=== PATIENT | female | born 1975 | race African-American/Black ===

== ENCOUNTER 2016-08-24 00:27 | Observation (INO) | payer OTHER ==
[~2016-08-24] VITALS: Ht 172.7 cm; Wt 70.0 kg
[2016-08-24] VITALS (7 sets, daily range): BP systolic 97–155; BP diastolic 61–95; PULSE 63–93; RESP 16–20; TEMP 97.8–98.4; O2SAT 96–99
[~2016-08-24 00:27] MED LIST: DIAZ5 PO; OXYC-360 PO; Z.0.NO CURRENT MEDS
--- NOTE | 2016-08-24 00:48 | PD ---
HPI Chief Complaint: epigastric and left-sided pain Time Seen by Provider: 00:48 Travel History International Travel<30 days: No Contact w/Intl Traveler<30days: No Traveled to known affect area: No History of Present Illness HPI 41-year-old female came to the emergency room with her for epigastric and left sided pain. Patient points to the left side of her lower chest area and the epigastrium as the location of the pain. However patient has significant scoliosis and the pain seems more like left flank. She also says that the pain radiates to the left side and goes to the back. It is spasmodic in nature. She has been nauseous and vomited 4 times since the pain has begun. Patient says that the pain started at 6 PM yesterday evening when she was coming home from work. An hour after that she started throwing up. Patient says that she passed a kidney stone about 15 years ago and at that time she had this kind of severe pain. She was doing fine yesterday before the symptoms started. She is otherwise a healthy person. She has an IUD and hence does not think she could be . She looks uncomfortable and in distress. No history of diarrhea. She did have 1 bowel movement which looked normal and did not relieve her pain. [facility] Past Medical History Narrative Medical List of her past medical history as reviewed from the nursing note. Musculoskeletal: Yes (scoliosis) Past Surgical History Neurologic Surgery: Yes (back) Social History Alcohol Use: No Tobacco Use: No Substance Use: No Allergies-Medications (Allergen,Severity, Reaction): Coded Allergies: No Known Allergies (Unverified , 02/02/12) Comments No known drug allergies. Reported Meds & Prescriptions Reported Meds & Active Scripts Active No Active Prescriptions or Reported Medications Narrative Medication List of her home medications reviewed from the nursing note. Review of Systems Except as stated in HPI: all other systems reviewed are Neg Physical Exam Narrative GENERAL: Awake, alert, moderate to significant distress SKIN: Warm and dry. HEAD: Atraumatic. Normocephalic. EYES: Pupils equal and round. No scleral icterus. No injection or drainage. ENT: No nasal bleeding or discharge. Mucous membranes pink and moist. NECK: Trachea midline. No JVD. CARDIOVASCULAR: Regular rate and rhythm. No murmur appreciated. RESPIRATORY: No accessory muscle use. Clear to auscultation. Breath sounds equal bilaterally. GASTROINTESTINAL: Abdomen soft, non-tender, nondistended. Hepatic and splenic margins not palpable. MUSCULOSKELETAL: No obvious deformities. No clubbing. No cyanosis. No edema. Significant scoliosis to the left. Scar from old back surgery for scoliosis. No point tenderness. NEUROLOGICAL: Awake and alert. No obvious cranial nerve deficits. Motor grossly within normal limits. Normal speech. PSYCHIATRIC: Appropriate mood and affect; insight and judgment normal. Data Data Last Documented VS Vital Signs Date Time Temp Pulse Resp B/P Pulse Ox O2 Delivery O2 Flow Rate FiO2 08/24/16 00:32 97.8 93 16 155/95 97 Room Air Orders Complete Blood Count With Diff (08/24/16 00:59) Basic Metabolic Panel (Bmp) (08/24/16 00:59) Beta Hcg (Quant/Titer) (08/24/16 00:59) Urinalysis - C+S If Indicated (08/24/16 00:59) Ct Abd/Pel W/O Iv Contrast (08/24/16 00:59) Ecg Monitoring (08/24/16 00:59) Iv Access Insert/Monitor (08/24/16 00:59) Morphine Inj (Morphine Inj) (08/24/16 01:00) Ondansetron Inj (Zofran Inj) (08/24/16 01:00) Sodium Chloride 0.9% Flush (Ns Flush) (08/24/16 01:00) Sodium Chlor 0.9% 1000 Ml Inj (Ns 1000 M (08/24/16 00:59) Troponin I (08/24/16 00:59) Chest, Single Ap (08/24/16 ) Electrocardiogram (08/24/16 ) Blood Culture (08/24/16 03:17) Lactic Acid (08/24/16 03:17) Piperacil-Tazo 3.375 Gm Premix (Zosyn 3. (08/24/16 03:30) Admit Order (Ed Use Only) (08/24/16 03:23) Us Abdomen Gallbladder (08/24/16 ) Lipase (08/24/16 01:02) Labs Laboratory Tests Test 08/24/16 08/24/16 01:02 01:50 White Blood Count 12.8 TH/MM3 Red Blood Count 4.41 MIL/MM3 Hemoglobin 13.2 GM/DL Hematocrit 38.2 % Mean Corpuscular Volume 86.7 FL Mean Corpuscular Hemoglobin 29.9 PG Mean Corpuscular Hemoglobin 34.5 % Concent Red Cell Distribution Width 14.1 % Platelet Count 330 TH/MM3 Mean Platelet Volume 8.2 FL Neutrophils (%) (Auto) 82.2 % Lymphocytes (%) (Auto) 9.7 % Monocytes (%) (Auto) 4.9 % Eosinophils (%) (Auto) 2.3 % Basophils (%) (Auto) 0.9 % Neutrophils # (Auto) 10.5 TH/MM3 Lymphocytes # (Auto) 1.2 TH/MM3 Monocytes # (Auto) 0.6 TH/MM3 Eosinophils # (Auto) 0.3 TH/MM3 Basophils # (Auto) 0.1 TH/MM3 CBC Comment AUTO DIFF Differential Total Cells 100 Counted Neutrophils % (Manual) 80 % Band Neutrophils % 4 % Lymphocytes % 10 % Monocytes % 5 % Eosinophils % 1 % Neutrophils # (Manual) 10.8 TH/MM3 Differential Comment FINAL DIFF MANUAL Platelet Estimate NORMAL Platelet Morphology Comment NORMAL Ovalocytes 1+ Red Cell Morphology Comment Sodium Level 139 MEQ/L Potassium Level 3.8 MEQ/L Chloride Level 107 MEQ/L Carbon Dioxide Level 25.1 MEQ/L Anion Gap 7 MEQ/L Blood Urea Nitrogen 7 MG/DL Creatinine 0.81 MG/DL Estimat Glomerular Filtration 94 ML/MIN Rate Random Glucose 109 MG/DL Calcium Level 8.7 MG/DL Total Bilirubin 0.3 MG/DL Direct Bilirubin LESS THAN 0.1 MG/DL Indirect Bilirubin 0.2 MG/DL Aspartate Amino Transf 24 U/L (AST/SGOT) Alanine Aminotransferase 37 U/L (ALT/SGPT) Alkaline Phosphatase 57 U/L Troponin I LESS THAN 0.02 NG/ML Total Protein 7.3 GM/DL Albumin 3.9 GM/DL Lipase 162 U/L Human Chorionic Gonadotropin, LESS THAN 1 Quant MIU/ML Urine Color LIGHT-YELLOW Urine Turbidity HAZY Urine pH 7.5 Urine Specific [place] 1.011 Urine Protein NEG mg/dL Urine Glucose (UA) NEG mg/dL Urine Ketones NEG mg/dL Urine Occult Blood NEG Urine Nitrite NEG Urine Bilirubin NEG Urine Urobilinogen LESS THAN 2.0 MG/DL Urine Leukocyte Esterase NEG Urine RBC 1 /hpf Urine WBC LESS THAN 1 /hpf Urine Squamous Epithelial 8 /hpf Cells Urine Bacteria RARE /hpf Urine Mucus FEW /lpf Microscopic Urinalysis Comment CULT NOT INDICATED MDM Medical Decision Making Medical Screen Exam Complete: Yes Emergency Medical Condition: Yes Medical Record Reviewed: Yes Interpretation(s) Twelve-lead EKG was reviewed by me. Normal sinus rhythm, normal axis, nonspecific ST-T wave changes. Heart rate of 68 bpm. Differential Diagnosis ACS, renal colic, musculoskeletal pain Narrative Course 1:33 AM awaiting for the blood test results and the CAT scan to be done and resulted. Patient has been medicated for pain and nausea. 3:18 AM CAT scan result is back and is suggestive of distended gallbladder with slightly thickened gallbladder wall and possible pericholecystic fluid. I have ordered IV Zosyn along with blood cultures and lactic acid. I went back and reassessed the patient. She says that the pain was little better and is now coming back again. She does not seem to be exquisitely tender in the right upper quadrant. However patient does have significant scoliosis which probably has caused abnormal anatomical positioning of the viscera. In any case I have decided to admit the patient at least for observation. I let her know about this plan. Patient is okay with that. Her white count was slightly elevated with left shift. Awaiting for the hospitalist to call back. I will order an ultrasound of her gallbladder as well. Procedures EKG Prior to Arrival: No Diagnosis Primary Impression: Abdominal pain Qualified Code: R10.9 - Abdominal pain, unspecified location Additional Impression: Acute cholecystitis Admitting Information Admitting Physician Requests: Admit Scripts No Active Prescriptions or Reported Meds Logan Barreto MD Aug 24, 2016 00:48
[2016-08-24] MEDS ORDERED: SODIUM CHLOR 0.9% 1000 ML INJ 1,000 ML IV ONE (00:59)
[2016-08-24] MEDS ORDERED: SODIUM CHLORIDE 0.9% FLUSH 5 ML FLUSH IVF PRN (01:00)
[2016-08-24] MEDS ORDERED: MORPHINE SULFATE 4 MG/ML INJ IV ONE (01:00)
[2016-08-24] MEDS ORDERED: ONDANSETRON HCL 4 MG/2 ML VIAL IVP ONE (01:00)
[2016-08-24 01:28] LABS: AUTOMATED NEUTROPHIL # 10.5 TH/MM3 (1.8-7.7); BASOPHIL # 0.1 TH/MM3 (0-0.2); BASOPHIL % 0.9 % (0.0-2.0); EOSINOPHIL # 0.3 TH/MM3 (0-0.4); EOSINOPHIL % 2.3 % (0.0-4.0); HEMATOCRIT 38.2 % (35.0-46.0); LYMPH % 9.7 % (9.0-44.0); LYMPHOCYTE # 1.2 TH/MM3 (1.0-4.8); MEAN CELL VOLUME 86.7 FL (80.0-100.0); MEAN CORPUSCULAR HEMOGLOBIN 29.9 PG (27.0-34.0); MEAN CORPUSCULAR HGB CONC 34.5 % (32.0-36.0); MONO % 4.9 % (0.0-8.0); NEUT % 82.2 % (16.0-70.0); PLATELET COUNT 330 TH/MM3 (150-450); RED BLOOD COUNT 4.41 MIL/MM3 (4.00-5.30); RED CELL DISTRIBUTION WIDTH 14.1 % (11.6-17.2); WHITE BLOOD COUNT 12.8 TH/MM3 (4.0-11.0)
[2016-08-24 01:33] LABS: HEMO FLAGS AUTO DIFF
[2016-08-24 01:54] LABS: ANION GAP 7 MEQ/L (5-15); BICARBONATE 25.1 MEQ/L (21.0-32.0); BLOOD UREA NITROGEN 7 MG/DL (7-18); CHLORIDE 107 MEQ/L (98-107); GLOMERULAR FILTRATION RATE 94 ML/MIN (>89); POTASSIUM 3.8 MEQ/L (3.5-5.1); SODIUM (NA) 139 MEQ/L (136-145)
[2016-08-24 01:57] LABS: BETA HCG QUANT LESS THAN 1 MIU/ML (0-5)
[2016-08-24 02:05] LABS: BANDS 4 % (0-6); EOSINOPHILS 1 % (0-4); NEUTROPHIL # MANUAL DIFF 10.8 TH/MM3 (1.8-7.7); PLATELET ESTIMATE SMEAR NORMAL (NORMAL); PLATELET MORPHOLOGY NORMAL (NORMAL); POLYS (SEG NEUTROPHILS) 80 % (16-70); SCAN/DIFF FINAL DIFF MANUAL; WBC DIFF SAMPLE 100
[2016-08-24 02:07] LABS: OVALOCYTES 1+ (NORMAL)
--- NOTE | 2016-08-24 02:29 | RADRPT ---
EXAM DATE/TIME: 08/24/2016 02:09 [facility] COMPARISON: No previous studies available for comparison. INDICATIONS : Left flank pain since yesterday evening. ORAL CONTRAST: No oral contrast ingested. RADIATION DOSE: 7.37 CTDIvol (mGy) MEDICAL HISTORY : Renal calculi. SURGICAL HISTORY : Tubal ligation. Fusion, lumbar.Fusion, thoracic. ENCOUNTER: Initial ACUITY: 1 day PAIN SCALE: 7/10 LOCATION: Left flank TECHNIQUE: Volumetric scanning of the abdomen and pelvis was performed. Using automated exposure control and ad justment of the mA and/or kV according to patient size, radiation dose was kept as low as reasonably achievable to obtain optimal diagnostic quality images. FINDINGS: LOWER LUNGS: The visualized lower lungs are clear. LIVER: Homogeneous density without lesion. There is no dilation of the biliary tree. Gallbladder is distend ed and by CT there appears to be gallbladder wall thickening and pericholecystic fluid. No definite s tone seen. There is no ductal dilatation demonstrated. SPLEEN: Normal size without lesion. PANCREAS: Within normal limits. KIDNEYS: Normal in size and shape. There is no mass, stone, or hydronephrosis. ADRENAL GLANDS: Within normal limits. VASCULAR: There is no aortic aneurysm. BOWEL/MESENTERY: The stomach, small bowel, and colon demonstrate no acute abnormality. There is no free intraperitone al air or fluid. Appendix is well-visualized, normal. ABDOMINAL WALL: Within normal limits. RETROPERITONEUM: There is no lymphadenopathy. BLADDER: No wall thickening or mass. REPRODUCTIVE: No mass or inflammatory change is seen. No pelvic free fluid. There is an IUD that appears appropriat argelia positioned centrally within the uterus. INGUINAL: There is no lymphadenopathy or hernia. MUSCULOSKELETAL: No acute bony abnormality demonstrated. Patient has scoliosis. There is been previous lower thoracic spine fusion procedure with posterior instrumentation. CONCLUSION: 1. No stone or obstructive uropathy seen of either kidney. 2. However, distended, thick walled gallbladder with pericholecystic fluid noted and of concern for c holecystitis in the proper clinical setting. No definite cholelithiasis. Kaden Hampton MD on August 24, 2016 at 2:21 Board Certified Radiologist. This report was verified electronically.
--- NOTE | 2016-08-24 02:40 | RADRPT ---
EXAM DATE/TIME: 08/24/2016 01:33 [facility] COMPARISON: No previous studies available for comparison. INDICATIONS : Shortness of breath. MEDICAL HISTORY : None. SURGICAL HISTORY : None. ENCOUNTER: Initial ACUITY: 1 day PAIN SCORE: 0/10 LOCATION: Bilateral chest FINDINGS: A single view of the chest demonstrates the lungs to be symmetrically aerated without evidence of mas s, infiltrate or effusion. The cardiomediastinal contours are unremarkable. There is dextroconvex curvature of the thoracic spine. Patient has had previous thoracic spine fusion procedure with posterior instrumentation. CONCLUSION: No evidence of acute cardiopulmonary disease. Kaden Hampton MD on August 24, 2016 at 2:38 Board Certified Radiologist. This report was verified electronically.
[2016-08-24 02:56] LABS: BACTERIA, URINE RARE /hpf; BLOOD, URINE NEG (NEG); COMMENT (UR) CULT NOT INDICATED; CULTURE IF INDICATED CULT NOT INDICATED; GLUCOSE,URINE NEG (NEG); KETONE, URINE NEG (NEG); MUCUS URINE FEW /lpf (OCC); NITRITE,URINE NEG (NEG); PH, URINE 7.5 (5.0-8.5); SQUAMOUS EPITHELIAL CELL URINE 8 /hpf (0-5); URINE COLOR LIGHT-YELLOW (YELLW/STRAW)
[2016-08-24] MEDS ORDERED: PIPERACIL-TAZO 3.375 GM PREMIX 50 ML IV ONE (03:30)
[2016-08-24] MEDS ORDERED: MORPHINE SULFATE 4 MG/ML INJ IV PRN (05:00)
--- NOTE | 2016-08-24 05:32 | RADRPT ---
EXAM DATE/TIME: 08/24/2016 04:22 [facility] COMPARISON: CT ABDOMEN & PELVIS W/O CONTRAST, August 24, 2016, 2:09. INDICATIONS : Right upper quadrant pain. MEDICAL HISTORY : Vomiting. Right upper quadrant pain. SURGICAL HISTORY : Back surgery. ENCOUNTER: Initial ACUITY: 1 day PAIN SCORE: 9/10 LOCATION: Right upper quadrant MEASUREMENTS: LIVER: 13.4 cm length COMMON DUCT: 4 mm RIGHT KIDNEY: 8.8 x 4.9 x 4.0 cm FINDINGS: LIVER: Normal echotexture without focal lesion or ductal dilatation. There is normal flow velocity and direc tion in the main portal vein. COMMON DUCT: No intraluminal mass or stone visualized. GALLBLADDER: Multiple large stones demonstrated including a 17 mm stone that appears impacted at the neck. There i s gallbladder wall thickening and pericholecystic fluid. Also some cristopher-cholecystic hyperemia demonst rated with color flow imaging. PANCREAS: The visualized portions are within normal limits. RIGHT KIDNEY: No evidence of hydronephrosis, stone, or mass. CONCLUSION: Cholelithiasis and suspected early acute cholecystitis. One of three large gallstones is impacted at the neck. Kaden Hampton MD on August 24, 2016 at 5:28 Board Certified Radiologist. This report was verified electronically.
[2016-08-24] MEDS ORDERED: ONDANSETRON HCL 4 MG/2 ML VIAL IV PRN (09:45)
[2016-08-24] MEDS ORDERED: ACETAMINOPHEN 325 MG TAB PO PRN (09:45)
[2016-08-24] MEDS: SODIUM CHLOR 0.9% 1000 ML INJ 1,000 ML IV SCH ×2 (10:27→21:41)
[2016-08-24 10:43] LABS: ALKALINE PHOSPHATASE 57 U/L (45-117); ALT (GPT) 37 U/L (10-53); AST (GOT) 24 U/L (15-37); INDIRECT BILIRUBIN 0.2 MG/DL (0.0-0.8); TOTAL BILIRUBIN ADULT 0.3 MG/DL (0.2-1.0)
--- NOTE | 2016-08-24 11:36 | HHI.HP ---
HPI Service [facility] Hospitalists Primary Care Physician Joe Ames MD Admission Diagnosis abdominal pain, acute cholecystitis Chief Complaint: Abdominal pain Travel History International Travel<30 Days: No Contact w/Intl Traveler <30 Da: No Traveled to Known Affected Are: No History of Present Illness Mrs. Tipton is a pleasant 41 y/o AAF with scoliosis otherwise healthy. She [place] [facility] [place] with complaints of sudden onset of abdominal pain, nausea/vomiting that began yesterday. The pain was located in the epigastric area and to the left upper abdomen. However the patient has significant scoliosis and the pain was more in the left flank with radiation to the back. She was nauseous and vomited 4 times after the pain began at 6 PM yesterday evening. Patient says that she passed a kidney stone about 15 years ago. Pt had a CT abd/pelvis in the ED which was negative for kidney stones but noted distended, thick walled gallbladder with pericholecystic fluid noted and of concern for cholecystitis in the proper clinical setting. Abd US revealed cholelithiasis and suspected early acute cholecystitis with one of three large gallstones impacted at the neck. LFTs were WNL and Lipase was also WNL. She was given a dose of Zosyn in the ER. Pt reports that her pain is improving and she has not had any further vomiting. Review of Systems Constitutional: DENIES: Fever, Chills Eyes: DENIES: Vision loss Ears, nose, mouth, throat: DENIES: Hearing loss Respiratory: DENIES: Cough Cardiovascular: DENIES: Chest pain Gastrointestinal: COMPLAINS OF: Abdominal pain, Nausea, Vomiting Genitourinary: DENIES: Hematuria, Dysuria Musculoskeletal: DENIES: Joint pain Integumentary: DENIES: Rash Neurologic: DENIES: Headache Past Family Social History Past Medical History Scoliosis Past Surgical History Back surgery Reported Medications No outpt meds reported Allergies: Coded Allergies: No Known Allergies (Unverified , 02/02/12) Family History Father with a hx of diabetes and CAD Social History Denies any alcohol, tobacco or illicit drug use Physical Exam Vital Signs Vital Signs Date Time Temp Pulse Resp B/P Pulse Ox O2 Delivery O2 Flow Rate FiO2 08/24/16 10:28 98.4 63 97/61 99 Room Air 08/24/16 07:49 98.2 78 16 106/64 99 Room Air 08/24/16 07:40 76 16 99 Room Air 08/24/16 06:50 68 16 106/68 96 Room Air 08/24/16 03:58 85 16 126/73 97 Room Air 08/24/16 00:32 97.8 93 16 155/95 97 Room Air Physical Exam GENERAL: This is a well-nourished, well-developed patient, in no apparent distress. HEENT: Atraumatic. Normocephalic. No temporal or scalp tenderness. No scleral icterus. Airway patent. NECK: Trachea midline, supple, nontender. CARDIO: Regular. RESP: CTA bilaterally. No wheezes, rales, or rhonchi. ABD: +BS, soft, non-tender, nondistended. EXT: Extremities without clubbing, cyanosis, or edema. NEURO: Awake and alert. Motor and sensory grossly within normal limits. Normal speech. Laboratory Laboratory Tests Test 08/24/16 08/24/16 08/24/16 01:02 01:50 03:50 White Blood Count 12.8 Red Blood Count 4.41 Hemoglobin 13.2 Hematocrit 38.2 Mean Corpuscular Volume 86.7 Mean Corpuscular Hemoglobin 29.9 Mean Corpuscular Hemoglobin 34.5 Concent Red Cell Distribution Width 14.1 Platelet Count 330 Mean Platelet Volume 8.2 Neutrophils (%) (Auto) 82.2 Lymphocytes (%) (Auto) 9.7 Monocytes (%) (Auto) 4.9 Eosinophils (%) (Auto) 2.3 Basophils (%) (Auto) 0.9 Neutrophils # (Auto) 10.5 Lymphocytes # (Auto) 1.2 Monocytes # (Auto) 0.6 Eosinophils # (Auto) 0.3 Basophils # (Auto) 0.1 CBC Comment AUTO DIFF Differential Total Cells 100 Counted Neutrophils % (Manual) 80 Band Neutrophils % 4 Lymphocytes % 10 Monocytes % 5 Eosinophils % 1 Neutrophils # (Manual) 10.8 Differential Comment FINAL DIFF MANUAL Platelet Estimate NORMAL Platelet Morphology Comment NORMAL Ovalocytes 1+ Red Cell Morphology Comment Sodium Level 139 Potassium Level 3.8 Chloride Level 107 Carbon Dioxide Level 25.1 Anion Gap 7 Blood Urea Nitrogen 7 Creatinine 0.81 Estimat Glomerular Filtration 94 Rate Random Glucose 109 Calcium Level 8.7 Total Bilirubin 0.3 Direct Bilirubin LESS THAN 0.1 Indirect Bilirubin 0.2 Aspartate Amino Transf 24 (AST/SGOT) Alanine Aminotransferase 37 (ALT/SGPT) Alkaline Phosphatase 57 Troponin I LESS THAN 0.02 Total Protein 7.3 Albumin 3.9 Lipase 162 Human Chorionic Gonadotropin, LESS THAN 1 Quant Urine Color LIGHT-YELLOW Urine Turbidity HAZY Urine pH 7.5 Urine Specific [place] 1.011 Urine Protein NEG Urine Glucose (UA) NEG Urine Ketones NEG Urine Occult Blood NEG Urine Nitrite NEG Urine Bilirubin NEG Urine Urobilinogen LESS THAN 2.0 Urine Leukocyte Esterase NEG Urine RBC 1 Urine WBC LESS THAN 1 Urine Squamous Epithelial 8 Cells Urine Bacteria RARE Urine Mucus FEW Microscopic Urinalysis Comment CULT NOT INDICATED Lactic Acid Level 0.6 Date/Time Procedure Status Source Growth 08/24/16 03:50 Aerobic Blood Culture Received Blood Peripheral Pending 08/24/16 03:50 Anaerobic Blood Culture Received Blood Peripheral Pending Result Diagram: 08/24/16 0102 08/24/16 0102 Imaging Last Impressions Abdomen/Pelvis CT 08/24/16 0059 Signed Impressions: Service Date/Time: August 02:09 - CONCLUSION: 1. No stone or obstructive uropathy seen of either kidney. 2. However, distended, thick walled gallbladder with pericholecystic fluid noted and of concern for cholecystitis in the proper clinical setting. No definite cholelithiasis. Kaden Hampton MD Gall Bladder Ultrasound 08/24/16 0000 Signed Impressions: Service Date/Time: August 04:22 - CONCLUSION: Cholelithiasis and suspected early acute cholecystitis. One of three large gallstones is impacted at the neck. Kaden Hampton MD Chest X-Ray 08/24/16 0000 Signed Impressions: Service Date/Time: August 01:33 - CONCLUSION: No evidence of acute cardiopulmonary disease. Kaden Hampton MD Septic Shock Reassessment Heart: Regular rate and rhythm Lungs: Clear Skin: Warm Peripheral Pulses: Bounding Right Radial Bounding Left Radial Bounding Right Popliteal Bounding Left Popliteal Bounding Right Dorsalis Pedis Bounding Left Dorsalis Pedis Bounding Right Posterior Tibial Bounding Left Posterior Tibial Capillary Refill: <2 seconds Assessment and Plan Problem List: (1) Acute cholecystitis Status: Acute Plan: - Pt presented to the ER on 08/24/16 with complaints of sudden onset of abdominal pain and vomiting. - WBC count 12.8 at admission. - CT Abd/pelvis (08/24/16) --> No stone or obstructive uropathy seen of either kidney. However, distended, thick walled gallbladder with pericholecystic fluid noted and of concern for cholecystitis in the proper clinical setting. - Abd US (08/24/16) --> Cholelithiasis and suspected early acute cholecystitis. One of three large gallstones is impacted at the neck. - LFTs are all WNL. - Lipase 162 at admission - Pt given a dose of Zosyn in the ED - Blood cultures were drawn in the ED and are pending. - Consult General Surgery - Cont. IVF - Cont. Zosyn - Pt is NPO - Zofran PRN - Pain control PRN - Tylenol PRN - DVT prophylaxis with SCDs Assessment and Plan Patient examined. Assessment and plan formulated with Laurence Osorio PA-C. I agree with the above. Laurence Osorio Aug 24, 2016 11:36 Gee Douglass DO Aug 30, 2016 18:38
--- NOTE | 2016-08-24 11:58 | HHI.PR ---
Subjective Subjective Notes The patient was seen in consultation and the chart reviewed. At the time of my examination, the patient states that she is having no pain at all and no further nausea or vomiting. She states the pain was very severe last night which caused her to come to the emergency room but it has resolved after medication and has not returned. Objective Vitals/I&O Vital Signs Date Time Temp Pulse Resp B/P Pulse Ox O2 Delivery O2 Flow Rate FiO2 08/24/16 10:28 98.4 63 97/61 99 Room Air 08/24/16 07:49 16 Labs Laboratory Tests Test 08/24/16 08/24/16 08/24/16 01:02 01:50 03:50 White Blood Count 12.8 Red Blood Count 4.41 Hemoglobin 13.2 Hematocrit 38.2 Mean Corpuscular Volume 86.7 Mean Corpuscular Hemoglobin 29.9 Mean Corpuscular Hemoglobin 34.5 Concent Red Cell Distribution Width 14.1 Platelet Count 330 Mean Platelet Volume 8.2 Neutrophils (%) (Auto) 82.2 Lymphocytes (%) (Auto) 9.7 Monocytes (%) (Auto) 4.9 Eosinophils (%) (Auto) 2.3 Basophils (%) (Auto) 0.9 Neutrophils # (Auto) 10.5 Lymphocytes # (Auto) 1.2 Monocytes # (Auto) 0.6 Eosinophils # (Auto) 0.3 Basophils # (Auto) 0.1 CBC Comment AUTO DIFF Differential Total Cells 100 Counted Neutrophils % (Manual) 80 Band Neutrophils % 4 Lymphocytes % 10 Monocytes % 5 Eosinophils % 1 Neutrophils # (Manual) 10.8 Differential Comment FINAL DIFF MANUAL Platelet Estimate NORMAL Platelet Morphology Comment NORMAL Ovalocytes 1+ Red Cell Morphology Comment Sodium Level 139 Potassium Level 3.8 Chloride Level 107 Carbon Dioxide Level 25.1 Anion Gap 7 Blood Urea Nitrogen 7 Creatinine 0.81 Estimat Glomerular Filtration 94 Rate Random Glucose 109 Calcium Level 8.7 Total Bilirubin 0.3 Direct Bilirubin LESS THAN 0.1 Indirect Bilirubin 0.2 Aspartate Amino Transf 24 (AST/SGOT) Alanine Aminotransferase 37 (ALT/SGPT) Alkaline Phosphatase 57 Troponin I LESS THAN 0.02 Total Protein 7.3 Albumin 3.9 Lipase 162 Human Chorionic Gonadotropin, LESS THAN 1 Quant Urine Color LIGHT-YELLOW Urine Turbidity HAZY Urine pH 7.5 Urine Specific [place] 1.011 Urine Protein NEG Urine Glucose (UA) NEG Urine Ketones NEG Urine Occult Blood NEG Urine Nitrite NEG Urine Bilirubin NEG Urine Urobilinogen LESS THAN 2.0 Urine Leukocyte Esterase NEG Urine RBC 1 Urine WBC LESS THAN 1 Urine Squamous Epithelial 8 Cells Urine Bacteria RARE Urine Mucus FEW Microscopic Urinalysis Comment CULT NOT INDICATED Lactic Acid Level 0.6 Date/Time Procedure Status Source Growth 08/24/16 03:50 Aerobic Blood Culture Received Blood Peripheral Pending 08/24/16 03:50 Anaerobic Blood Culture Received Blood Peripheral Pending Radiology Last 24 hours Impressions Abdomen/Pelvis CT 08/24/16 0059 Signed Impressions: Service Date/Time: August 02:09 - CONCLUSION: 1. No stone or obstructive uropathy seen of either kidney. 2. However, distended, thick walled gallbladder with pericholecystic fluid noted and of concern for cholecystitis in the proper clinical setting. No definite cholelithiasis. Kaden Hampton MD Gall Bladder Ultrasound 08/24/16 0000 Signed Impressions: Service Date/Time: August 04:22 - CONCLUSION: Cholelithiasis and suspected early acute cholecystitis. One of three large gallstones is impacted at the neck. Kaden Hampton MD Chest X-Ray 08/24/16 0000 Signed Impressions: Service Date/Time: August 01:33 - CONCLUSION: No evidence of acute cardiopulmonary disease. Kaden Hampton MD Cardiovascular: Regular Lungs: Clear Abdomen: Non-distended, Non-tender, BS normal Extremities: No edema A/P Assessment and Plan Impression: Mild acute cholecystitis with chronic cholelithiasis. Plan: The patient will be taken to the operating room for scheduled procedure tomorrow morning. On explaining the procedure as well as the risks and benefits to the patient and her including the possibility of visceral injury, bile duct injury, open procedure, and the possibility of postoperative ERCP. She understands and is agreeable to the procedure. Royal Castro MD Aug 24, 2016 11:58
[2016-08-24] MEDS: PIPERACIL-TAZO 3.375 GM PREMIX 50 ML IV SCH ×2 (14:01→18:10)
[2016-08-24] MEDS ORDERED: LACTATED RINGER'S 1000 ML IV SCH (22:15)
[2016-08-25] VITALS: BP 100/62; PULSE 75; RESP 17; TEMP 96.3; O2SAT 100
[2016-08-25] MEDS: PIPERACIL-TAZO 3.375 GM PREMIX 50 ML IV SCH ×3 (00:24→13:57)
[2016-08-25 04:47] LABS: AUTOMATED NEUTROPHIL # 3.9 TH/MM3 (1.8-7.7); BASOPHIL # 0.1 TH/MM3 (0-0.2); BASOPHIL % 1.7 % (0.0-2.0); EOSINOPHIL # 0.4 TH/MM3 (0-0.4); EOSINOPHIL % 5.1 % (0.0-4.0); HEMATOCRIT 37.3 % (35.0-46.0); HEMO FLAGS DIFF FINAL; LYMPH % 30.4 % (9.0-44.0); LYMPHOCYTE # 2.2 TH/MM3 (1.0-4.8); MEAN CORPUSCULAR HEMOGLOBIN 29.3 PG (27.0-34.0); MEAN CORPUSCULAR HGB CONC 32.9 % (32.0-36.0); MONO % 9.6 % (0.0-8.0); NEUT % 53.2 % (16.0-70.0); PLATELET COUNT 260 TH/MM3 (150-450); WHITE BLOOD COUNT 7.3 TH/MM3 (4.0-11.0)
[2016-08-25 05:14] LABS: ALKALINE PHOSPHATASE 46 U/L (45-117); ALT (GPT) 56 U/L (10-53); ANION GAP 7 MEQ/L (5-15); AST (GOT) 28 U/L (15-37); BICARBONATE 27.9 MEQ/L (21.0-32.0); BLOOD UREA NITROGEN 5 MG/DL (7-18); CHLORIDE 108 MEQ/L (98-107); GLOMERULAR FILTRATION RATE 70 ML/MIN (>89); MAGNESIUM 2.3 MG/DL (1.5-2.5); POTASSIUM 4.1 MEQ/L (3.5-5.1); SODIUM (NA) 143 MEQ/L (136-145); TOTAL BILIRUBIN ADULT 0.4 MG/DL (0.2-1.0)
[2016-08-25] MEDS: SODIUM CHLOR 0.9% 1000 ML INJ 1,000 ML IV SCH ×2 (06:00→16:22)
--- NOTE | 2016-08-25 06:56 | EKG ---
Date Performed: 08/24/2016 Time Performed: 00:51:59 PTAGE: 41 years EKG: Sinus rhythm POSSIBLE RIGHT VENTRICULAR CONDUCTION DELAY BORDERLINE ECG INTERPRETATION BASED ON A DEFAULT AGE OF 39 YEARS NO PREVIOUS TRACING DOCTOR: Jermain Mccain Interpretating Date/Time 08/25/2016 06:54:02
[2016-08-25 07:58] VITALS: BP 113/64; PULSE 60; RESP 20; TEMP 98.7; O2SAT 99
[2016-08-25] MEDS ORDERED: NEOSTIGMINE 3 MG/3 ML SYR IV ONE (08:54)
[2016-08-25] MEDS ORDERED: ONDANSETRON HCL 4 MG/2 ML VIAL IV PUSH ONE (08:54)
[2016-08-25] MEDS ORDERED: PROPOFOL 200 MG/20 ML AMP IV ONE (08:54)
[2016-08-25] MEDS ORDERED: KETOROLAC TROMETHAMINE 60 MG/2 ML (IM) VIAL IM ONE (08:54)
[2016-08-25] MEDS ORDERED: BUPIVACAINE/EPINEPHRINE 0.25% PF 30 ML VIAL ONE (09:51)
[2016-08-25] MEDS ORDERED: INFLUENZA VIRUS VACCINE (QUADRIVALENT) 0.5 ML SYR IM ONE (10:00)
[2016-08-25] MEDS ORDERED: FAMOTIDINE 20 MG/2 ML VIAL ONE (10:11)
[2016-08-25] MEDS ORDERED: ACETAMINOPHEN 1000 MG/100 ML VIAL IV ONE (10:11)
[2016-08-25] MEDS ORDERED: fentaNYL CITRATE 250 MCG/5 ML AMP ONE (10:12)
[2016-08-25] MEDS ORDERED: MIDAZOLAM HCL 2 MG/2 ML VIAL ONE (10:12)
[2016-08-25] MEDS ORDERED: oxyCODONE/ACETAMINOPHEN 5 MG/325 MG TAB PO PRN ×2 (13:00)
[2016-08-25] MEDS ORDERED: KETOROLAC TROMETHAMINE 30 MG/ML (IVP) VIAL IV PUSH SCH (13:00)
[2016-08-25] MEDS ORDERED: MORPHINE SULFATE 4 MG/ML INJ IV PRN ×2 (13:00)
[2016-08-25] MEDS ORDERED: SODIUM CHLORIDE 5 ML FLUSH PRN IVF (13:00)
[2016-08-25] MEDS ORDERED: ONDANSETRON HCL 4 MG/2 ML VIAL IV PRN (13:00)
[2016-08-25] MEDS ORDERED: *morphine SULFATE 8 MG/ML PERIprocedure ONLY ONE (13:15)
[2016-08-25] MEDS ORDERED: DO NOT ADM ANY ANTICOAGULANT DRUGS XX PRN (13:15)
--- NOTE | 2016-08-25 13:16 | PD.OP ---
cc: Royal Castro MD; Joe Ames MD Operative Report Date of Surgery: Aug 25, 2016 Preoperative Diagnosis: Acute cholecystitis and cholelithiasis Postoperative Diagnosis: Acute cholecystitis and cholelithiasis Procedure: Laparoscopic cholecystectomy Anesthesia: Gen. endotracheal Surgeon: Royal Castro Systems Librarian(s): None Operation and Findings: Operative findings: The patient was found to have an acutely and chronically diseased-appearing gallbladder which was quite thick-walled and had several large stones within its lumen. The anatomy was quite distorted as the common bile duct was densely adherent to the Vargas's pouch area of the gallbladder. No other gross abnormalities were noted. Operative procedure: The patient was brought to the operating room and after satisfactory general endotracheal anesthesia was obtained, the abdomen was prepped and draped in usual sterile fashion. 0.25% Marcaine with epinephrine was used to infiltrate the skin for local anesthesia. A small incision was made just below the umbilicus and a 5 mm trocar was inserted into the peritoneal cavity under direct visualization. The abdomen was then distended to 15 mmHg using carbon dioxide. The camera was reinserted, and visceral injury inspected for, with none being identified. Under direct visualization a 5 port and 12 port were placed in the upper midline. The fundus of the gallbladder was easily identified, grasped and retracted superiorly over the right lobe of the liver after which Vargas's pouch was identified grasped and retracted inferiorly and laterally placing tension on the hepatoduodenal ligament. The dissection was quite difficult initially due to the fact the area of the gallbladder and common bile duct was densely adherent and initially the common bile duct was identified and was partially dissected free from the surrounding structures. Once it was ascertained that the critical view was not going to be obtained in this plane, dissection was carried out near the Vargas' s pouch area of the gallbladder. With tedious dissection the common bile duct was dissected free from the gallbladder itself. The cystic artery was then identified and isolated. The cystic duct was then finally dissected free and was seems to be somewhat shortened. Once the critical view of been obtained, the cystic artery was divided with the Harmonic scalpel near structures of the gallbladder. The gallbladder was then dissected free from the liver bed using the harmonic scalpel. 2 separate PDS Endoloops were used to secure the cystic duct and the it was divided near structures of the gallbladder using the harmonic scalpel. The gallbladder was then placed within an Endo Catch bag and was brought out through the upper midline incision which was necessarily enlarged somewhat to allow egress of the large stones. The trochars reinserted and visceral injury again inspected for none being identified. The area was irrigated with saline. Hemostasis was checked for and found be satisfactory. The cystic duct and cystic artery stumps were both seen to be intact with no leakage of bile or blood. The common bile duct was seen to be intact. The carbon dioxide was then vented as completely as possible to the atmosphere. The ports were removed and the 12 mm fascial defect closed with interrupted 0 Vicryl sutures. Skin was then closed with interrupted 4-0 Monocryl subcuticular stitches. Steri -Strips were applied and the patient then awakened and taken from the operating room, in satisfactory condition, having tolerated procedure without problem. Estimated blood loss was less than 10 mL's. Inspra, sponge, and needle counts were reported as being correct 2 at the end of the procedure. Royal Castro MD Aug 25, 2016 13:16
[2016-08-25 16:00] VITALS: BP 119/72; PULSE 100; RESP 19; TEMP 97.4; O2SAT 100
[2016-08-25] MEDS ORDERED: SODIUM CHLORIDE 5 ML FLUSH BID IVF SCH (21:00)
== END 2016-08-25 19:09 | disposition home or self-care (01) ==
LOC: NEPC 00:27 → NEDA 03:25 → INTOOBSV 03:25 → NEDH 08:20 → N07B 15:15
PROVIDERS: ADMIT Surgery; ATTEND Surgery
DX: K80.00 Calculus of gallbladder with acute cholecystitis without obstruction (principal); R94.31 Abnormal electrocardiogram [ECG] [EKG]; M41.9 Scoliosis, unspecified; Z23 Encounter for immunization; Z87.442 Personal history of urinary calculi
CPT/HCPCS: 00790; 47562; 71010; 74176; 76705; 80048; 80053; 80076; 81001; 83605; 83690; 83735; 84484; 84702; 85007; 85025; 85027; 87040; 88304; 93005; 96361; 96374; 96375; 99285; G0378; J0131; J1885; J2250; J2270; J2405; J2543; J2710; J3010; J7030; Q2038; 90686